=== PATIENT | male | born 1960 ===

== ENCOUNTER → 2017-07-22 | Outpatient (CLI) | payer OTHER, BC | LOC: BMCIMAGING 12:06 | PROVIDERS: ATTEND Emergency Medicine | DX: M25.462 Effusion, left knee (principal); M50.922 Unspecified cervical disc disorder at C5-C6 level; M50.923 Unspecified cervical disc disorder at C6-C7 level; V89.2XXA Person injured in unspecified motor-vehicle accident, traffic, initial encounter ==